=== PATIENT | female | born 2000 | race Two or more races ===

== ENCOUNTER 2022-02-17 23:04 | Emergency (ER) | payer OTHER ==
[2022-02-18] MEDS ORDERED: METOCLOPRAMIDE 10 MG/2 ML VIAL IVP STA (00:10)
[2022-02-18] MEDS ORDERED: KETOROLAC 30 MG/ML VIAL IVP STA (00:10)
[2022-02-18] MEDS ORDERED: diphenhydrAMINE INJ 50 MG/ML VIAL IVP STA (00:10)
[2022-02-18] MEDS ORDERED: SODIUM CHLORIDE 0.9% 1,000 ML IV STA (00:10)
[2022-02-18 00:30] LABS: BASOPHILS % (AUTO) 0.3 %; EOSINOPHILS # (AUTO) 0.1 10^3/uL (0.0-0.7); EOSINOPHILS % (AUTO) 0.5 %; HCT - HEMATOCRIT 37.2 % (37.0-47.0); LYMPHOCYTES # (AUTO) 3.2 10^3/uL (1.5-3.5); LYMPHOCYTES % (AUTO) 32.7 %; MEAN CORPUSCULAR HEMOGLOBIN 29.7 pg (27.0-31.0); MEAN CORPUSCULAR HGB CONC 34.9 g/dL (32.0-36.0); MEAN CORPUSCULAR VOLUME 85.1 fL (81.0-99.0); MEAN PLATELET VOLUME 10.9 fL (7.9-10.8); MONOCYTES # (AUTO) 0.5 10^3/uL (0.0-1.0); NEUTROPHILS % (AUTO) 61.2 %; PLT - PLATELET COUNT 240 10^3/uL (130-450); RED BLOOD COUNT 4.37 10^6/uL (4.20-5.40); RED CELL DISTRIBUTION WIDTH 11.5 % (12.0-15.0); WHITE BLOOD COUNT 9.8 x10^3/uL (4.8-10.8)
[2022-02-18 00:41] LABS: ALBUMIN 3.9 g/dL (3.2-5.5); ALBUMIN/GLOBULIN RATIO 1.5 (1.0-2.2); BILIRUBIN,TOTAL 0.3 mg/dL (0.2-1.0); CALCIUM 9.3 mg/dL (8.5-10.3); CREATININE 0.7 mg/dL (0.4-1.0); POTASSIUM 3.1 mmol/L (3.5-5.0); TOTAL PROTEIN 6.5 g/dL (6.7-8.2)
--- NOTE | 2022-02-18 01:49 | ED Physician Documentation ---
PD HPI HEADACHE - Stated complaint Stated Complaint: CHEST PX,HEADACHE - Chief complaint Chief Complaint: Heent - History obtained from History obtained from: Patient - Additional information Additional information: Patient is a 21-year-old female presenting for evaluation of a left-sided headache that has been present for the last 3 to 4 days. She has been using Midol with some improvement in her headache. She denies any known exacerbating factors but does report that it seems worse at night.She denies exertion at onset or any recent head trauma or injury. She has associated photophobia. She denies nausea, vomiting, abnormal vision. Patient also reports having intermittent episodes of left-sided chest pain including earlier today. She is unsure of any exacerbating or alleviating factors and there is no radiation to the pain. There is no associated shortness of breath. She denies concern for . No abdominal pain or back pain. Patient does not regularly take any medications. Review of Systems Constitutional: denies: Fever Eyes: reports: Photophobia Nose: denies: Congestion Cardiac: reports: Chest pain / pressure. denies: Palpitations Respiratory: denies: Dyspnea, Cough GI: denies: Abdominal Pain, Vomiting Skin: denies: Rash Musculoskeletal: denies: Neck pain, Back pain Neurologic: reports: Headache. denies: Generalized weakness, Syncope PD PAST MEDICAL HISTORY - Present Medications Home Medications: Ambulatory Orders Medication Instructions Recorded Confirmed No Known Home Medications 02/17/22 02/17/22 - Allergies Allergies/Adverse Reactions: Allergies Allergy/AdvReac Type Severity Reaction Status Date / Time No Known Drug Allergies Allergy Verified 02/17/22 23:30 PD ED PE NORMAL - General General: Alert and oriented X 3, No acute distress, Well developed/nourished - HEENT HEENT: Atraumatic, PERRL, EOMI, Ears normal, Moist mucous membranes, Pharynx benign - Neck Neck: Supple, no meningeal sign, No bony TTP - Cardiac Cardiac: RRR, No murmur, Strong equal pulses - Respiratory Respiratory: No respiratory distress, Clear bilaterally - Abdomen Abdomen: Normal bowel sounds, Soft, Non tender, Non distended - Back Back: No spinal TTP - Derm Derm: Warm and dry - Extremities Extremities: No deformity, No edema - Neuro Neuro: Alert and oriented X 3, spiritual minister 2-12 intact, No motor deficit, No sensory deficit, Normal speech, Other (Normal unassisted gait) Results - Vitals Vitals: Vital Signs - 24 hr 02/17/22 02/17/22 02/18/22 23:27 23:29 00:30 Temperature 36.8 C 36.8 C Heart Rate 73 73 77 Respiratory 17 17 18 Rate Blood Pressure 123/76 123/76 116/77 O2 Saturation 100 100 100 02/18/22 02:13 Temperature 36.7 C Heart Rate 76 Respiratory 16 Rate Blood Pressure 107/76 O2 Saturation 99 Oxygen O2 Source Room air - EKG (time done) 2312 Rate: Rate (enter#) (79) Rhythm: NSR Intervals: No: Prolonged QT Ischemia: No: ST elevation c/w ischemia - Labs Labs: Laboratory Tests 02/18/22 02/18/22 02/18/22 00:19 00:19 00:19 WBC 9.8 RBC 4.37 Hgb 13.0 Hct 37.2 MCV 85.1 MCH 29.7 MCHC 34.9 RDW 11.5 L Plt Count 240 MPV 10.9 H Neut # (Auto) 6.0 Lymph # (Auto) 3.2 [place] # (Auto) 0.5 Eos # (Auto) 0.1 Baso # (Auto) 0.0 Absolute Nucleated RBC 0.00 Nucleated RBC % 0.0 Sodium 137 Potassium 3.1 L Chloride 102 Carbon Dioxide 27 Anion Gap 8.0 BUN 17 Creatinine 0.7 Estimated GFR (MDRD) 106 Glucose 129 H Calcium 9.3 Total Bilirubin 0.3 AST 17 ALT 14 Alkaline Phosphatase 55 Troponin I High Sens < 2.3 L Total Protein 6.5 L Albumin 3.9 Globulin 2.6 Albumin/Globulin Ratio 1.5 Lipase 26 Urine Color Urine Clarity Urine pH Ur Specific [place] Urine Protein Urine Glucose (UA) Urine Ketones Urine Occult Blood Urine Nitrite Urine Bilirubin Urine Urobilinogen Ur Leukocyte Esterase Ur Microscopic Review Urine Culture Comments Urine HCG, Qual 02/18/22 01:30 WBC RBC Hgb Hct MCV MCH MCHC RDW Plt Count MPV Neut # (Auto) Lymph # (Auto) [place] # (Auto) Eos # (Auto) Baso # (Auto) Absolute Nucleated RBC Nucleated RBC % Sodium Potassium Chloride Carbon Dioxide Anion Gap BUN Creatinine Estimated GFR (MDRD) Glucose Calcium Total Bilirubin AST ALT Alkaline Phosphatase Troponin I High Sens Total Protein Albumin Globulin Albumin/Globulin Ratio Lipase Urine Color YELLOW Urine Clarity CLEAR Urine pH 6.0 Ur Specific [place] 1.020 Urine Protein NEGATIVE Urine Glucose (UA) NEGATIVE Urine Ketones NEGATIVE Urine Occult Blood NEGATIVE Urine Nitrite NEGATIVE Urine Bilirubin NEGATIVE Urine Urobilinogen 0.2 (NORMAL) Ur Leukocyte Esterase NEGATIVE Ur Microscopic Review NOT INDICATED Urine Culture Comments NOT INDICATED Urine HCG, Qual NEGATIVE PD MEDICAL DECISION MAKING - ED course Complexity details: reviewed results, re-evaluated patient, d/w patient ED course: Patient presenting for evaluation of left-sided headache as well as chest pain. In regards to her headache, no red flag signs or symptoms to suggest intracranial process. Her neuro exam is normal and does not appear to be mauricio nderclap in intensity. No signs of meningismus. Patient had significant improvement with migraine cocktail. In regards to her chest pain, patient is at very low risk for ACS and her symptoms are atypical for ACS. PERC negative. EKG is reassuring without signs of acute ischemia and troponin is negative. Labs reviewed and patient is feeling much better and requesting discharge. She is ambulatory at time of discharge and is advised on concerning symptoms to return for. Departure - Departure Disposition: 01 Home, Self Care Clinical Impression: Migrainous headache without aura Qualifiers: Status migrainosus presence: without status migrainosus Intractability: not intractable Qualified Code(s): G43.009 - Migraine without aura, not intractable, without status migrainosus Chest pain Qualifiers: Chest pain type: unspecified Qualified Code(s): R07.9 - Chest pain, unspecified Condition: Stable Instructions: ED Chest Pain Atypical Unkn Cause, ED Headache Migraine Comments: You were evaluated for a headache and chest pain. Your headache has improved with medication we have given you here. Please continue with acetaminophen or ibuprofen as needed if the pain returns. If you have any worsening symptoms please consider return to the ER. At this time we have decided to hold off on any imaging of your brain as you are neurologic exam appears normal.We have also evaluated you for chest pain. Your EKG and cardiac markers are reassuring and we do not see signs of heart attack or any abnormalities on your chest x-ray. Please follow-up with your primary care doctor. If you have any worsening symptoms please return to the emergency department. Discharge Date/Time: 02/18/22 02:13
[2022-02-18 01:54] LABS: BILIRUBIN,URINE NEGATIVE (NEGATIVE); GLUCOSE, URINE (UA) NEGATIVE (NEGATIVE); KETONES,URINE (UA) NEGATIVE (NEGATIVE); LEUKOCYTE ESTERASE, URINE NEGATIVE (NEGATIVE); NITRITE,URINE NEGATIVE (NEGATIVE); OCCULT BLOOD,URINE NEGATIVE (NEGATIVE); PROTEIN,URINE NEGATIVE (NEGATIVE); UROBILINOGEN,URINE 0.2 (NORMAL) E.U./dL (NORMAL)
[2022-02-18 01:55] LABS: CLARITY,URINE CLEAR (CLEAR)
[2022-02-18 01:56] LABS: HCG UR QUAL NEGATIVE
--- NOTE | 2022-02-18 01:59 | XRAY Report ---
PROCEDURE: Chest 1 View X-Ray INDICATIONS: CP TECHNIQUE: One view of the chest was acquired. COMPARISON: None. FINDINGS: Surgical changes and devices: None. Lungs and pleura: No pleural effusions or pneumothorax. Lungs are clear. Mediastinum: Mediastinal contours appear normal. Heart size is normal. Bones and chest wall: No suspicious bony lesions. Overlying soft tissues appear unremarkable. IMPRESSION: 1. No acute cardiopulmonary disease. Reviewed by: Hitesh Acevedo MD on 02/18/2022 2:04 AM PDT Approved by: Hitesh Acevedo MD on 02/18/2022 2:04 AM PDT Station ID: [id number]
[2022-02-18 02:14] VITALS: BP 107/76
== END 2022-02-18 02:13 | disposition home or self-care (01) ==
LOC: ED 23:04
DX: G43.009 Migraine without aura, not intractable, without status migrainosus (principal); R07.9 Chest pain, unspecified
CPT/HCPCS: 36415; 71045; 80053; 81003; 81025; 83690; 84484; 85025; 93005; 96361; 96374; 96375; 99284; J1200; J2765; 81001; 87086

== ENCOUNTER 2022-09-02 11:18 | Emergency (ER) | payer OTHER ==
[2022-09-02] MEDS ORDERED: SODIUM CHLORIDE 0.9% 1,000 ML IV STA (11:43)
[2022-09-02] MEDS ORDERED: ONDANSETRON 4 MG/2 ML VIAL IVP STA (11:43)
--- NOTE | 2022-09-02 12:01 | ED Physician Documentation ---
History of Present Illness - Stated complaint Stated Complaint: ACCIDENTAL OD - Chief complaint Chief Complaint: General - History obtained from History obtained from: Patient - Additonal information Additional information: Patient is a 22-year-old female presenting for evaluation of accidental over ingestion of her Cymbalta. Patient recently had an increase to her regular dosing approximately 10 days ago to 60 mg. She accidentally took an extra dose this morning around 830 as that she could not remember if she had already taken her dose for the day. She believes she took 120 mg today. She reports feeling nauseous and woozy.She denies alcohol intake or other drug ingestion. She denies feeling suicidal. Review of Systems Constitutional: denies: Fever Cardiac: denies: Chest pain / pressure Respiratory: denies: Dyspnea GI: reports: Nausea. denies: Abdominal Pain : denies: Dysuria Neurologic: reports: Generalized weakness. denies: Headache PD PAST MEDICAL HISTORY - Present Medications Home Medications: Ambulatory Orders Medication Instructions Recorded Confirmed DULoxetine [Cymbalta] 60 mg PO DAILY 09/02/22 09/02/22 Ondansetron Odt [Zofran] 4 mg TL Q6H PRN #10 tablet 09/02/22 - Allergies Allergies/Adverse Reactions: Allergies Allergy/AdvReac Type Severity Reaction Status Date / Time No Known Drug Allergies Allergy Verified 09/02/22 11:26 PD ED PE NORMAL - General General: Alert and oriented X 3 (Slightly drowsy but otherwise easily awake couple), No acute distress, Well developed/nourished - HEENT HEENT: Atraumatic, PERRL, EOMI - Neck Neck: Supple, no meningeal sign - Cardiac Cardiac: RRR - Respiratory Respiratory: No respiratory distress, Clear bilaterally - Abdomen Abdomen: Soft, Non tender - Derm Derm: Warm and dry - Neuro Neuro: Alert and oriented X 3, material reprocessing associate 2-12 intact, No motor deficit, No sensory deficit, Normal speech Results - Vitals Vitals: Vital Signs - 24 hr 09/02/22 09/02/22 11:21 13:37 Temperature 36.4 C L 36.7 C Heart Rate 99 87 Respiratory 20 18 Rate Blood Pressure 129/77 111/60 O2 Saturation 100 98 Oxygen O2 Source Room air - EKG (time done) 1207 EKG releavant findings:: EKG personally interpreted by author of this note. Relevant findings are: Rate 79, normal sinus rhythm, QTc 429, normal intervals, no STEMI Rate: Rate (enter#) (79) Rhythm: NSR Intervals: No: Prolonged QT Ischemia: No: ST elevation c/w ischemia Compare to prior EKG: Unchanged from prior EKG - Labs Labs: Laboratory Tests 09/02/22 09/02/22 09/02/22 11:15 11:15 11:15 WBC 8.0 RBC 4.89 Hgb 14.1 Hct 42.1 MCV 86.1 MCH 28.8 MCHC 33.5 RDW 12.1 Plt Count 266 MPV 10.6 Neut # (Auto) 5.5 Lymph # (Auto) 1.9 [place] # (Auto) 0.5 Eos # (Auto) 0.0 Baso # (Auto) 0.0 Absolute Nucleated RBC 0.00 Nucleated RBC % 0.0 Sodium 133 L Potassium 3.5 Chloride 104 Carbon Dioxide 23 Anion Gap 6.0 BUN 16 Creatinine 0.7 Estimated GFR (MDRD) 105 Glucose 88 Calcium 9.1 Total Bilirubin 0.6 AST 18 ALT 14 Alkaline Phosphatase 53 Total Protein 7.0 Albumin 3.9 Globulin 3.1 Albumin/Globulin Ratio 1.3 Lipase 27 TSH 2.05 Salicylates < 6.0 Acetaminophen < 10 L Ethyl Alcohol < 5.0 PD Medical Decision Making - ED course Complexity details: reviewed results, re-evaluated patient, d/w patient ED course: Patient's RN contacted poison control. Spoke with Tom at Poison control- non toxic dose. may cause nausea/shakiness and drowsiness. No observation required. Supportive care. Patient presenting for evaluation after accidentally taking an extra dose of Cymbalta. She reports feeling woozy and nauseous. Her neuro exam is normal and there was no trauma.Her vital signs appear stable. Poison control was contacted and recommended continued supportive care. The patient denies being suicidal. Labs were obtained without any significant findings on CBC, chemistries. Urine analysis and urine drug screen were ordered but patient had missed The urine When trying to give a sample. Salicylate, acetaminophen and EtOH levels are negative. Patient is feeling better here after IV fluids and Zofran. She appears to be at her baseline. She was advised on using more caution when taking her medication and also aware of concerning symptoms to return for.I did ask her again if she was having any thoughts of hurting yourself and she continues to deny this. Departure - Departure Disposition: 01 Home, Self Care Clinical Impression: Accidental overdose Condition: Stable Instructions: ED Overdose Accidental Prescriptions: Ondansetron Odt [Zofran] 4 mg TL Q6H PRN #10 tablet PRN Reason: Nausea / Vomiting Comments: You are experiencing some symptoms from accidentally taking too much of your Cymbalta. I would recommend using a Daily pill container So that you can keep track of you have already taken your medication for that day. Please make sure you stay hydrated and get rest today. If you develop any worsening symptoms such as vomiting, pain, have thoughts of hurting yourself or any new concerns then please return to the emergency department. I have sent a prescription for [place]in[place] medication [place] [facility] [place] Discharge Date/Time: 09/02/22 13:40
[2022-09-02 12:07] LABS: BASOPHILS % (AUTO) 0.4 %; EOSINOPHILS % (AUTO) 0.3 %; HCT - HEMATOCRIT 42.1 % (37.0-47.0); HGB - HEMOGLOBIN 14.1 g/dL (12.0-16.0); LYMPHOCYTES # (AUTO) 1.9 10^3/uL (1.5-3.5); MEAN CORPUSCULAR HEMOGLOBIN 28.8 pg (27.0-31.0); MEAN CORPUSCULAR HGB CONC 33.5 g/dL (32.0-36.0); MEAN CORPUSCULAR VOLUME 86.1 fL (81.0-99.0); MEAN PLATELET VOLUME 10.6 fL (7.9-10.8); MONOCYTES # (AUTO) 0.5 10^3/uL (0.0-1.0); MONOCYTES % (AUTO) 5.9 %; NEUTROPHILS # (AUTO) 5.5 10^3/uL (1.5-6.6); NEUTROPHILS % (AUTO) 69.1 %; PLT - PLATELET COUNT 266 10^3/uL (130-450); RED BLOOD COUNT 4.89 10^6/uL (4.20-5.40); RED CELL DISTRIBUTION WIDTH 12.1 % (12.0-15.0)
[2022-09-02 13:10] LABS: ACETAMINOPHEN < 10 ug/mL (10-30); ALBUMIN 3.9 g/dL (3.2-5.5); ALBUMIN/GLOBULIN RATIO 1.3 (1.0-2.2); ALKALINE PHOSPHATASE 53 IU/L (42-121); ALT ALANINE AMINOTRANSFERASE 14 IU/L (10-60); AST ASPARTATE AMINOTRANSFERASE 18 IU/L (10-42); BILIRUBIN,TOTAL 0.6 mg/dL (0.2-1.0); BUN - BLOOD UREA NITROGEN 16 mg/dL (6-20); CALCIUM 9.1 mg/dL (8.5-10.3); CARBON DIOXIDE - CO2 23 mmol/L (21-32); CHLORIDE 104 mmol/L (101-111); CREATININE 0.7 mg/dL (0.4-1.0); ETOH - ETHANOL < 5.0 mg/dL; GFR - MDRD 105 (>89); GLUCOSE 88 mg/dL (70-100); LIPASE 27 U/L (22-51); POTASSIUM 3.5 mmol/L (3.5-5.0); SALICYLATE < 6.0 mg/dL; SODIUM 133 mmol/L (135-145)
[2022-09-02 13:37] VITALS: BP 111/60
== END 2022-09-02 13:40 | disposition home or self-care (01) ==
LOC: EDUNIT# → ED 11:18
DX: R11.0 Nausea (principal); T43.211A Poisoning by selective serotonin and norepinephrine reuptake inhibitors, accidental (unintentional), initial encounter
CPT/HCPCS: 36415; 80053; 80306; 80307; 80320; 80329; 81001; 81003; 81025; 83690; 84443; 85025; 87086; 93005; 96374; 99284

== ENCOUNTER 2023-06-28 14:32 | Emergency (ER) | payer OTHER ==
[2023-06-28] MEDS ORDERED: LORazepam 2 MG/ML VIAL IVP STA ×2 (14:42)
[2023-06-28] MEDS ORDERED: LORazepam 2 MG/ML VIAL ONE (14:42)
[2023-06-28 15:08] LABS: BASOPHILS % (AUTO) 0.3 %; EOSINOPHILS % (AUTO) 0.1 %; HCT - HEMATOCRIT 43.4 % (37.0-47.0); HGB - HEMOGLOBIN 14.8 g/dL (12.0-16.0); LYMPHOCYTES # (AUTO) 2.6 10^3/uL (1.5-3.5); LYMPHOCYTES % (AUTO) 35.8 %; MEAN CORPUSCULAR HEMOGLOBIN 28.4 pg (27.0-31.0); MEAN CORPUSCULAR HGB CONC 34.1 g/dL (32.0-36.0); MEAN CORPUSCULAR VOLUME 83.1 fL (81.0-99.0); MEAN PLATELET VOLUME 12.2 fL (7.9-10.8); MONOCYTES # (AUTO) 0.5 10^3/uL (0.0-1.0); MONOCYTES % (AUTO) 6.9 %; NEUTROPHILS # (AUTO) 4.1 10^3/uL (1.5-6.6); NEUTROPHILS % (AUTO) 56.8 %; PLT - PLATELET COUNT 272 10^3/uL (130-450); RED BLOOD COUNT 5.22 10^6/uL (4.20-5.40); RED CELL DISTRIBUTION WIDTH 12.4 % (12.0-15.0); WHITE BLOOD COUNT 7.2 x10^3/uL (4.8-10.8)
--- NOTE | 2023-06-28 15:28 | CT Report ---
PROCEDURE: Head WO INDICATIONS: AMS/seizure TECHNIQUE: Noncontrast 4.5 mm thick angled axial sections acquired from the foramen magnum to the vertex. For r adiation dose reduction, the following was used: automated exposure control, adjustment of mA and/or kV according to patient size. COMPARISON: None. FINDINGS: Image quality: Excellent. CSF spaces: Basal cisterns are patent. No extra-axial fluid collections. Ventricles are normal in size and shape. Brain: No midline shift. No intracranial masses or hemorrhage. [place]-white matter interface is norm al. Skull and face: Calvarium and visualized facial bones are intact, without suspicious lesions. Sinuses: Visualized sinuses and mastoids are clear. IMPRESSION: No acute intracranial pathology. Reviewed by: Angelo Mathur MD on 06/28/2023 3:26 PM PST Approved by: Angelo Mathur MD on 06/28/2023 3:26 PM [facility] Station ID: [id number]
[2023-06-28 15:41] LABS: ETOH - ETHANOL < 10.0 mg/dL; LIPASE 13 U/L (11-82)
[2023-06-28 15:45] LABS: ACETAMINOPHEN < 0.1 ug/mL; ALBUMIN 4.9 g/dL (3.2-5.5); ALBUMIN/GLOBULIN RATIO 1.6 (1.0-2.2); ALKALINE PHOSPHATASE 55 IU/L (42-121); ALT ALANINE AMINOTRANSFERASE 27 IU/L (10-60); AST ASPARTATE AMINOTRANSFERASE 29 IU/L (10-42); BILIRUBIN,TOTAL 0.9 mg/dL (0.2-1.0); BUN - BLOOD UREA NITROGEN 11 mg/dL (6-20); CALCIUM 10.1 mg/dL (8.5-10.3); CARBON DIOXIDE - CO2 19 mmol/L (21-32); CHLORIDE 97 mmol/L (101-111); GLUCOSE 73 mg/dL (74-104); POTASSIUM 3.4 mmol/L (3.5-4.5); SALICYLATE < 1.5 mg/dL; SODIUM 137 mmol/L (135-145); TOTAL PROTEIN 7.9 g/dL (6.4-8.9)
[2023-06-28 15:48] LABS: BILIRUBIN,URINE SMALL (NEGATIVE); GLUCOSE, URINE (UA) NEGATIVE (NEGATIVE); KETONES,URINE (UA) >=80 mg/dL (NEGATIVE); LEUKOCYTE ESTERASE, URINE NEGATIVE (NEGATIVE); NITRITE,URINE NEGATIVE (NEGATIVE); OCCULT BLOOD,URINE TRACE-INTA (NEGATIVE); PROTEIN,URINE NEGATIVE (NEGATIVE); UROBILINOGEN,URINE 0.2 (NORMAL) E.U./dL (NORMAL)
[2023-06-28 15:51] LABS: CREATININE 0.7 mg/dL (0.6-1.3); GFR - MDRD 105 (>89)
[2023-06-28 15:54] LABS: CLARITY,URINE CLEAR (CLEAR); HCG UR QUAL NEGATIVE
[2023-06-28 15:58] LABS: AMPHETAMINE SCREEN,URINE NEGATIVE (NEGATIVE); BARBITURATE SCREEN,UR NEGATIVE (NEGATIVE); BENZODIAZEPINES SCREEN, URINE NEGATIVE (NEGATIVE); BUPRENORPHINE SCREEN, URINE NEGATIVE (NEGATIVE); COCAINE SCREEN URINE NEGATIVE (NEGATIVE); METHADONE SCREEN, URINE NEGATIVE (NEGATIVE); METHAMPHETAMINES SCREEN, URINE NEGATIVE (NEGATIVE); OPIATE SCREEN, URINE NEGATIVE (NEGATIVE); OXYCODONE SCREEN, URINE NEGATIVE (NEGATIVE); THC CANNABINOID SCREEN, URINE NEGATIVE (NEGATIVE); TRICYCLIC ANTIDEPRESSANT,URINE NEGATIVE (NEGATIVE)
[2023-06-28] MEDS ORDERED: SODIUM CHLORIDE 0.9% 1,000 ML IV STA (16:01)
[2023-06-28] MEDS ORDERED: POTASSIUM BICARB 25 MEQ TABLET PO ONE (16:02)
--- NOTE | 2023-06-28 16:11 | ED Physician Documentation ---
History of Present Illness - Stated complaint Stated Complaint: SYNCOPE - Chief complaint Chief Complaint: Neuro - History obtained from History obtained from: Patient - Additonal information Additional information: Patient is a 22-year-old female with a history of depression presenting for evaluation of syncopal episode. [facility]. She reportedly has had no appetite for the last 2 weeks and been having difficulty in tolerating p.o. with throwing up right after eating. She has been scared to eat. She has also have difficulty with liquids. Yesterday she had a syncopal episode while in the bath and hit her back. She reports feeling weak. She was transported to the ER via [facility] She did stop her depression meds a few Months ago which was duloxetine as she was scared of her organs being damaged. She denies a history of syncope or seizures in the past. Denies concerns for . Review of Systems Constitutional: reports: Fever (Subjective) Cardiac: denies: Chest pain / pressure Respiratory: denies: Dyspnea GI: reports: Nausea, Vomiting. denies: Abdominal Pain, Diarrhea : denies: Dysuria Neurologic: reports: Syncope PD PAST MEDICAL HISTORY - Past Medical History Past Medical History: Yes Psych: Depression, Anxiety - Past Surgical History Past Surgical History: No - Present Medications Home Medications: Ambulatory Orders Medication Instructions Recorded Confirmed DULoxetine [Cymbalta] 60 mg PO DAILY 09/02/22 06/28/23 - Allergies Allergies/Adverse Reactions: Allergies Allergy/AdvReac Type Severity Reaction Status Date / Time No Known Drug Allergies Allergy Verified 06/28/23 15:15 - Social History Does the pt smoke?: No Smoking Status: Never smoker Does the pt drink ETOH?: No Does the pt have substance abuse?: No - POLST Patient has POLST: No PD ED PE NORMAL - General General: Alert and oriented X 3, No acute distress, Well developed/nourished - HEENT HEENT: Atraumatic, PERRL, EOMI, Moist mucous membranes, Pharynx benign - Neck Neck: Supple, no meningeal sign - Cardiac Cardiac: RRR, Strong equal pulses - Respiratory Respiratory: No respiratory distress, Clear bilaterally - Abdomen Abdomen: Normal bowel sounds, Soft, Non tender, Non distended - Derm Derm: Warm and dry - Extremities Extremities: No deformity - Neuro Neuro: Alert and oriented X 3, No motor deficit, No sensory deficit, Normal speech Results - Vitals Vitals: Vital Signs - 24 hr 06/28/23 06/28/23 06/28/23 14:40 14:44 15:14 Temperature 37.1 C Heart Rate 115 H 65 76 Respiratory 30 H 16 16 Rate Blood Pressure 120/81 H 102/67 111/65 O2 Saturation 100 96 99 06/28/23 06/28/23 06/28/23 15:30 16:00 17:00 Temperature Heart Rate 79 75 99 Respiratory 16 16 16 Rate Blood Pressure 111/65 99/60 100/60 O2 Saturation 100 99 100 Oxygen O2 Source Room air - EKG (time done) 1538 EKG releavant findings:: EKG personally interpreted by author of this note. Relevant findings are: Rate 71, normal sinus rhythm, no STEMI - Labs Labs: Laboratory Tests 06/28/23 06/28/23 06/28/23 14:52 14:52 14:52 WBC 7.2 RBC 5.22 Hgb 14.8 Hct 43.4 MCV 83.1 MCH 28.4 MCHC 34.1 RDW 12.4 Plt Count 272 MPV 12.2 H Neut # (Auto) 4.1 Lymph # (Auto) 2.6 [place] # (Auto) 0.5 Eos # (Auto) 0.0 Baso # (Auto) 0.0 Absolute Nucleated RBC 0.00 Nucleated RBC % 0.0 Sodium 137 Potassium 3.4 L Chloride 97 L Carbon Dioxide 19 L Anion Gap 21.0 H BUN 11 Creatinine 0.7 Estimated GFR (MDRD) 105 Glucose 73 L POC Whole Bld Glucose Calcium 10.1 Total Bilirubin 0.9 AST 29 ALT 27 Alkaline Phosphatase 55 Total Protein 7.9 Albumin 4.9 Globulin 3.0 Albumin/Globulin Ratio 1.6 Lipase 13 Beta HCG, Quant < 0.6 Urine Color Urine Clarity Urine pH Ur Specific [place] Urine Protein Urine Glucose (UA) Urine Ketones Urine Occult Blood Urine Nitrite Urine Bilirubin Urine Urobilinogen Ur Leukocyte Esterase Ur Microscopic Review Urine Culture Comments Urine HCG, Qual Nasal Adenovirus (PCR) Nasal B. parapertussis DNA (PCR) Nasal Coronavir 229E PCR Nasal Coronavir HKU1 PCR Nasal Coronavir NL63 PCR Nasal Coronavir OC43 PCR Nasal Enterovir/Rhinovir PCR Nasal Influenza B PCR Nasal Influenza A PCR Nasal Parainfluen 1 PCR Nasal Parainfluen 2 PCR Nasal Parainfluen 3 PCR Nasal Parainfluen 4 PCR Nasal RSV (PCR) Nasal B.pertussis DNA PCR Nasal C.pneumoniae (PCR) Christian Human Metapneumo PCR Nasal M.pneumoniae (PCR) Nasal SARS-CoV-2 (PCR) Salicylates < 1.5 Urine Opiates Screen Ur Buprenorphine Scrn Ur Oxycodone Screen Urine Methadone Screen Acetaminophen < 0.1 Ur Barbiturates Screen Ur Tricyclics Screen Ur Phencyclidine Scrn Ur Amphetamine Screen U Methamphetamines Scrn U Benzodiazepines Scrn Urine Cocaine Screen U Cannabinoids Screen Ur Drug Screen Comment Ethyl Alcohol < 10.0 06/28/23 06/28/23 06/28/23 15:18 15:34 15:34 WBC RBC Hgb Hct MCV MCH MCHC RDW Plt Count MPV Neut # (Auto) Lymph # (Auto) [place] # (Auto) Eos # (Auto) Baso # (Auto) Absolute Nucleated RBC Nucleated RBC % Sodium Potassium Chloride Carbon Dioxide Anion Gap BUN Creatinine Estimated GFR (MDRD) Glucose POC Whole Bld Glucose 80 Calcium Total Bilirubin AST ALT Alkaline Phosphatase Total Protein Albumin Globulin Albumin/Globulin Ratio Lipase Beta HCG, Quant Urine Color YELLOW Urine Clarity CLEAR Urine pH 6.0 Ur Specific [place] 1.020 Urine Protein NEGATIVE Urine Glucose (UA) NEGATIVE Urine Ketones >=80 H Urine Occult Blood TRACE-INTA Urine Nitrite NEGATIVE Urine Bilirubin SMALL H Urine Urobilinogen 0.2 (NORMAL) Ur Leukocyte Esterase NEGATIVE Ur Microscopic Review NOT INDICATED Urine Culture Comments NOT INDICATED Urine HCG, Qual NEGATIVE Nasal Adenovirus (PCR) Nasal B. parapertussis DNA (PCR) Nasal Coronavir 229E PCR Nasal Coronavir HKU1 PCR Nasal Coronavir NL63 PCR Nasal Coronavir OC43 PCR Nasal Enterovir/Rhinovir PCR Nasal Influenza B PCR Nasal Influenza A PCR Nasal Parainfluen 1 PCR Nasal Parainfluen 2 PCR Nasal Parainfluen 3 PCR Nasal Parainfluen 4 PCR Nasal RSV (PCR) Nasal B.pertussis DNA PCR Nasal C.pneumoniae (PCR) Christian Human Metapneumo PCR Nasal M.pneumoniae (PCR) Nasal SARS-CoV-2 (PCR) Salicylates Urine Opiates Screen NEGATIVE Ur Buprenorphine Scrn NEGATIVE Ur Oxycodone Screen NEGATIVE Urine Methadone Screen NEGATIVE Acetaminophen Ur Barbiturates Screen NEGATIVE Ur Tricyclics Screen NEGATIVE Ur Phencyclidine Scrn NEGATIVE Ur Amphetamine Screen NEGATIVE U Methamphetamines Scrn NEGATIVE U Benzodiazepines Scrn NEGATIVE Urine Cocaine Screen NEGATIVE U Cannabinoids Screen NEGATIVE Ur Drug Screen Comment CUTOFF CONC BELOW: Ethyl Alcohol 06/28/23 16:25 WBC RBC Hgb Hct MCV MCH MCHC RDW Plt Count MPV Neut # (Auto) Lymph # (Auto) [place] # (Auto) Eos # (Auto) Baso # (Auto) Absolute Nucleated RBC Nucleated RBC % Sodium Potassium Chloride Carbon Dioxide Anion Gap BUN Creatinine Estimated GFR (MDRD) Glucose POC Whole Bld Glucose Calcium Total Bilirubin AST ALT Alkaline Phosphatase Total Protein Albumin Globulin Albumin/Globulin Ratio Lipase Beta HCG, Quant Urine Color Urine Clarity Urine pH Ur Specific [place] Urine Protein Urine Glucose (UA) Urine Ketones Urine Occult Blood Urine Nitrite Urine Bilirubin Urine Urobilinogen Ur Leukocyte Esterase Ur Microscopic Review Urine Culture Comments Urine HCG, Qual Nasal Adenovirus (PCR) NOT DETECTED Nasal B. parapertussis DNA (PCR) NOT DETECTED Nasal Coronavir 229E PCR NOT DETECTED Nasal Coronavir HKU1 PCR NOT DETECTED Nasal Coronavir NL63 PCR NOT DETECTED Nasal Coronavir OC43 PCR NOT DETECTED Nasal Enterovir/Rhinovir PCR NOT DETECTED Nasal Influenza B PCR NOT DETECTED Nasal Influenza A PCR NOT DETECTED Nasal Parainfluen 1 PCR NOT DETECTED Nasal Parainfluen 2 PCR NOT DETECTED Nasal Parainfluen 3 PCR NOT DETECTED Nasal Parainfluen 4 PCR NOT DETECTED Nasal RSV (PCR) NOT DETECTED Nasal B.pertussis DNA PCR NOT DETECTED Nasal C.pneumoniae (PCR) NOT DETECTED Christian Human Metapneumo PCR NOT DETECTED Nasal M.pneumoniae (PCR) NOT DETECTED Nasal SARS-CoV-2 (PCR) NOT DETECTED Salicylates Urine Opiates Screen Ur Buprenorphine Scrn Ur Oxycodone Screen Urine Methadone Screen Acetaminophen Ur Barbiturates Screen Ur Tricyclics Screen Ur Phencyclidine Scrn Ur Amphetamine Screen U Methamphetamines Scrn U Benzodiazepines Scrn Urine Cocaine Screen U Cannabinoids Screen Ur Drug Screen Comment Ethyl Alcohol PD Medical Decision Making - ED course Complexity details: reviewed results, re-evaluated patient, d/w patient, d/w family ED course: Patient is a 22-year-old female presenting for evaluation of a syncopal episode that occurred yesterday. She has been feeling unwell for the last 2 weeks with poor oral intake. On arrival here she did have seizure-like activity that appeared nonepileptic in nature as there was no postictal period. Labs were obtained and reviewed and without significant findings other than mild hypokalemia of 3.4 which was replaced orally and patient tolerated. Head CT was obtained given vague history which is unremarkable. Chest x-ray which I reviewed is negative for pneumonia. Respiratory swab is pending. Patient is not . Patient then is able to give further information that she feels very depressed because of going through divorce. She does feel safe at home. She has had decreased appetite because of this. She does not have local support system. She is wanting to talk to telepsychiatry which I feel is reasonable at this time given her severe symptoms. Patient to be signed out at shift change. 1440 - Upon arrival, I attempted to speak with the patient. She is holding her arms clenched and shaking but able to hold conversation. Her movements almost seem like a generalized seizure but she is able to answer my questions through this and does not drop her O2 saturations. I did order Ativan to see if this would help. I am concerned for a possible nonepileptic seizure As she was able to talk through the episode and did not have any postictal period.She is able to answer questions more clearly after the Ativan and again without a postictal period. 1717 - Patient reevaluated. She has been withdrawn, sometimes very sleepy appearing. When I ask her directed questions such as if she depressed she states yes and starts becoming quite tearful. I asked her what is making her feel depressed and she states divorce. I ask if that is something she is going through right now and she states that she thinks so. I asked her if she feels safe at home and she states yes. I asked if there is any abuse and she states no. She states that she is feeling this way because she just has no appetite and does not feel like eating. She has not heard having suicidal thoughts. I did ask if she would be interested in speaking to a telepsychiatrist and possible inpatient treatment if that is recommended given how severe her symptoms seem to be and she states yes. She has been medically cleared. Departure - Departure Clinical Impression: Syncope, Seizure-like activity, Depression, Poor appetite Condition: Stable Forms: PCP List
--- NOTE | 2023-06-28 17:31 | XRAY Report ---
PROCEDURE: Chest 1V INDICATIONS: syncope TECHNIQUE: One view of the chest was acquired. COMPARISON: None. FINDINGS: Surgical changes and devices: None. Lungs and pleura: No pleural effusions or pneumothorax. Lungs are clear. Mediastinum: Mediastinal contours appear normal. Heart size is normal. Bones and chest wall: No suspicious bony lesions. Overlying soft tissues appear unremarkable. IMPRESSION: No acute cardiopulmonary process. Reviewed by: Tisha Remy MD on 06/28/2023 5:29 PM PST Approved by: Tisha Remy MD on 06/28/2023 5:29 PM PST Station ID: [id number]
[2023-06-28 17:45] LABS: CORONAVIRUS 229E-RESP PCR NOT DETECTED; CORONAVIRUS HKU1-RESP PCR NOT DETECTED; CORONAVIRUS NL63-RESP PCR NOT DETECTED; CORONAVIRUS OC43-RESP PCR NOT DETECTED; HUMAN METAPNEUMOVIRUS NOT DETECTED; INFLUENZA A- RESP PCR PANEL NOT DETECTED; RHINOVIRUS/ENTEROVIRUS NOT DETECTED; SARS-CoV-2 -RESP PCR PANEL NOT DETECTED
[2023-06-28 17:46] LABS: B. PARAPERTUSSIS- RESP PCR PAN NOT DETECTED; B. PERTUSSIS- RESP PCR PANEL NOT DETECTED; C. PNEUMONIAE- RESP PCR PANEL NOT DETECTED; INFLUENZA B - RESP PCR PANEL NOT DETECTED; M. PNEUMONIAE- RESP PCR PANEL NOT DETECTED; PARAINFLUENZA VIRUS 1 NOT DETECTED; PARAINFLUENZA VIRUS 2 NOT DETECTED; PARAINFLUENZA VIRUS 3 NOT DETECTED; PARAINFLUENZA VIRUS 4 NOT DETECTED; RSV- RESP PCR PANEL NOT DETECTED
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
--- NOTE | 2023-06-28 22:08 | ED Physician Documentation ---
ED Addendum - Addendum Addendum: 06/28/23 22:06 Patient seen by telepsychiatry. They recommend inpatient treatment. Patient is agreeable to this. They will continue to look for placement. Patient signed out to Dr. Garcia We will restart her Cymbalta at 30 mg p.o. daily in the morning. This is ordered. Departure - Departure Clinical Impression: Seizure-like activity, Poor appetite Syncope Qualifiers: Syncope type: unspecified Qualified Code(s): R55 - Syncope and collapse Depression Qualifiers: Depression Type: unspecified Qualified Code(s): F32.A - Depression, unspecified Condition: Stable Forms: PCP List
[2023-06-28 23:18] VITALS: BP 108/67; O2SAT 99
--- NOTE | 2023-06-29 03:01 | ED Physician Documentation ---
ED Addendum - Addendum Addendum: 06/29/23 02:59 I received signout/turnover of care on this patient from Dr. Katz who, in turn, received signout from Dr. Holman. Please see Dr. Holman's note for complete H&P and Dr. Katz's note for ED addendum. During my (overnight) shift, a bed was found to be available at [facility]. I have filled out the transfer forms and patient is to be transferred later this morning.
[2023-06-29] MEDS ORDERED: DULoxetine 30 MG CAPSULE PO SCH (09:00)
== END 2023-06-29 09:00 ==
LOC: EDUNIT# → ED 14:32
DX: R55 Syncope and collapse (principal); R56.9 Unspecified convulsions; F32.A Depression, unspecified; R63.0 Anorexia
CPT/HCPCS: 36415; 70450; 71045; 80053; 80306; 80307; 80320; 80329; 81003; 81025; 83690; 84443; 84702; 85025; 87633; 93005; 96361; 96374; 99285; A9270; J2060; Q3014; 81001; 87086; 90834